=== PATIENT | male | born 1940 | race Caucasian/White ===

== ENCOUNTER 2023-08-08 08:11 | Day surgery (SDC) | payer OTHER ==
[2023-08-08 09:15] LABS: PH,URINE 5.5 (5.0-8.0); URINE APPEARANCE CLEAR; URINE BILIRUBIN NEGATIVE (NEGATIVE); URINE COLOR YELLOW; URINE GLUCOSE (UA) NEGATIVE (NEGATIVE); URINE KETONE NEGATIVE (NEGATIVE); URINE LEUK ESTERASE NEGATIVE (NEGATIVE); URINE NITRITE NEGATIVE (NEGATIVE); URINE PROTEIN TRACE (NEGATIVE); URINE UROBILINOGEN 0.2 mg/dL (0.2-1.0)
[2023-08-08 09:16] LABS: BASO % 0.9 % (0-2.0); EOS % 3.3 % (0-4.5); HEMATOCRIT 44.4 % (35.4-49); HEMOGLOBIN 14.5 GM/dL (11.7-16.9); MCHC 32.7 g/dl (32.0-35.9); MEAN CELL VOLUME 88.6 fl (80-96); MEAN PLT VOLUME 9.7 fl (7.5-11.1); MONO % 8.9 % (3.8-10.2); NEUT % 67.9 % (42.8-82.8); PLATELET COUNT 200 10^3/uL (134-434); RDW 14.3 % (11.9-15.9); WHITE BLOOD COUNT 6.5 K/mm3 (4.0-10.0)
[2023-08-08] MEDS: PORTA CATH FLUSH 10 ML IVPUSH PRN (09:40)
[2023-08-08] MEDS: SODIUM CHLORIDE 250 ML IV ONE (09:41)
[2023-08-08 09:44] LABS: POTASSIUM 4.2 mmol/L (3.5-5.1)
[2023-08-08 09:47] LABS: BLOOD UREA NITROGEN 18.6 mg/dL (7-18); CALCIUM 9.8 mg/dL (8.5-10.1)
[2023-08-08 09:48] LABS: ALBUMIN 3.3 g/dl (3.4-5.0)
[2023-08-08 09:50] LABS: BILIRUBIN,DIRECT 0.1 mg/dL (0.0-0.2); CREATININE 0.8 mg/dL (0.55-1.3)
[2023-08-08 09:52] LABS: BILIRUBIN,TOTAL 0.4 mg/dL (0.2-1)
[2023-08-08 09:53] LABS: N-TERMINAL BNP 466.5 pg/ml (5-450)
[2023-08-08] MEDS: FOSAPREPITANT DIMEGLUMINE 150 MG in SODIUM CHLORIDE 145 ML IVPB ONE (10:43)
[2023-08-08] MEDS: DEXAMETHASONE SOD PHOSPHATE 10 MG/1 ML VIAL IVPB ONE (11:21)
[2023-08-08] MEDS: PALONOSETRON HCL 0.25 MG/5 ML VIAL IVPUSH ONE (11:22)
[2023-08-08] MEDS: NIVOLUMAB 240 MG in SODIUM CHLORIDE 100 ML IVPB ONE (11:40)
[2023-08-08] MEDS: LEUCOVORIN CALCIUM IVPB ONE (12:19)
[2023-08-08] MEDS: WATER IVPB ONE (12:19)
[2023-08-08] MEDS: DEXTROSE 5% IVPB ONE (12:19)
[2023-08-08] MEDS: FLUOROURACIL CP ONE (14:42)
[2023-08-08] MEDS: SODIUM CHLORIDE CP ONE (14:42)
[2023-08-08] MEDS: FLUOROURACIL 500 MG/10 ML VIAL IVPUSH ONE (14:42)
[2023-08-08 16:08] VITALS: BP 137/78; PULSE 90; RESP 20; TEMP 97.8
[2023-08-08] MEDS ORDERED: PORTA CATH FLUSH 10 ML IVPUSH PRN (16:09)
== END 2023-08-08 15:25 | disposition home or self-care (01) ==
LOC: JONCCHEMO 08:11 → J7W 08:13 → JONCCHEMO 15:25
PROVIDERS: ATTEND Internal Medicine Hematology & Oncology
DX: Z51.11 Encounter for antineoplastic chemotherapy (principal); C15.9 Malignant neoplasm of esophagus, unspecified; C78.2 Secondary malignant neoplasm of pleura
CPT/HCPCS: 36415; 80048; 80076; 81003; 82150; 82533; 82550; 83690; 83880; 84439; 84443; 84484; 85025; 96367; 96375; 96413; 96415; 96417; G0498; J1100; J1453; J2469; J9190; J9263; J9299

== ENCOUNTER 2023-08-22 08:19 | Day surgery (SDC) | payer OTHER ==
[2023-08-22] MEDS: SODIUM CHLORIDE 250 ML IV ONE (09:35)
[2023-08-22 09:46] LABS: BASO % 0.5 % (0-2.0); EOS % 5.1 % (0-4.5); HEMATOCRIT 44.4 % (35.4-49); HEMOGLOBIN 14.7 GM/dL (11.7-16.9); LYMPH % 13.4 % (8-40); MCH 29.2 pg (25.7-33.7); MCHC 33.2 g/dl (32.0-35.9); MEAN CELL VOLUME 88.1 fl (80-96); MEAN PLT VOLUME 9.2 fl (7.5-11.1); PLATELET COUNT 189 10^3/uL (134-434); RBC 5.04 M/mm3 (4.00-5.60); WHITE BLOOD COUNT 6.1 K/mm3 (4.0-10.0)
[2023-08-22 09:55] LABS: EPI CELLS 15 /uL (0-25.1); HYALINE CASTS 1 /uL (0-3.1); URINE APPEARANCE CLEAR; URINE BACTERIA 12 /uL (0-1359); URINE BILIRUBIN NEGATIVE (NEGATIVE); URINE COLOR DK YELLOW; URINE GLUCOSE (UA) NEGATIVE (NEGATIVE); URINE KETONE NEGATIVE (NEGATIVE); URINE LEUK ESTERASE NEGATIVE (NEGATIVE); URINE NITRITE NEGATIVE (NEGATIVE); URINE PROTEIN 1+ (NEGATIVE); URINE RBC 30 /uL (0-23.9); URINE UROBILINOGEN 0.2 mg/dL (0.2-1.0); URINE WBC 11 /uL (0-25.8)
[2023-08-22 10:01] LABS: POTASSIUM 4.4 mmol/L (3.5-5.1)
[2023-08-22 10:05] LABS: ALBUMIN 3.4 g/dl (3.4-5.0); BLOOD UREA NITROGEN 15.9 mg/dL (7-18)
[2023-08-22 10:07] LABS: BILIRUBIN,DIRECT 0.1 mg/dL (0.0-0.2); CREATININE 0.9 mg/dL (0.55-1.3)
[2023-08-22 10:09] LABS: BILIRUBIN,TOTAL 0.4 mg/dL (0.2-1); N-TERMINAL BNP 424.3 pg/ml (5-450); TOT PROT 7.6 g/dl (6.4-8.2)
[2023-08-22] MEDS: FOSAPREPITANT DIMEGLUMINE 150 MG in SODIUM CHLORIDE 145 ML IVPB ONE (10:31)
[2023-08-22] MEDS: PALONOSETRON HCL 0.25 MG/5 ML VIAL IVPUSH ONE (11:20)
[2023-08-22] MEDS: DEXAMETHASONE SODIUM PHOSPHATE 10 MG in DEXTROSE 5%-WATER - 50 ML IVPB ONE (11:21)
[2023-08-22] MEDS: NIVOLUMAB 240 MG in SODIUM CHLORIDE 100 ML IVPB ONE (11:44)
[2023-08-22] MEDS: DEXTROSE 5% IVPB ONE (12:37)
[2023-08-22] MEDS: LEUCOVORIN CALCIUM IVPB ONE (12:37)
[2023-08-22] MEDS: WATER IVPB ONE (12:37)
[2023-08-22] MEDS: FLUOROURACIL 500 MG/10 ML VIAL IVPUSH ONE (14:59)
[2023-08-22] MEDS: SODIUM CHLORIDE CP ONE (15:00)
[2023-08-22] MEDS: FLUOROURACIL CP ONE (15:00)
[2023-08-22 15:57] VITALS: RESP 18; TEMP 97.5
[2023-08-22 16:11] VITALS: BP 103/52; PULSE 74
[2023-08-22] MEDS ORDERED: PORTA CATH FLUSH 10 ML IVPUSH PRN (16:11)
== END 2023-08-22 15:30 | disposition home or self-care (01) ==
LOC: JONCCHEMO 08:19 → J7W 08:21 → JONCCHEMO 15:30
PROVIDERS: ATTEND Internal Medicine Hematology & Oncology
DX: Z51.11 Encounter for antineoplastic chemotherapy (principal); C15.9 Malignant neoplasm of esophagus, unspecified; C78.2 Secondary malignant neoplasm of pleura
CPT/HCPCS: 36415; 80048; 80076; 81003; 82150; 82533; 82550; 83690; 83880; 84439; 84443; 84484; 85025; 96367; 96375; 96411; 96413; 96415; 96417; G0498; J1453; J2469; J9190; J9263; J9299

== ENCOUNTER 2023-09-05 08:28 | Day surgery (SDC) | payer OTHER ==
[2023-09-05 08:49] LABS: BASO % 0.8 % (0-2.0); EOS % 10.8 % (0-4.5); HEMATOCRIT 44.8 % (35.4-49); HEMOGLOBIN 14.5 GM/dL (11.7-16.9); LYMPH % 27.6 % (8-40); MCH 28.9 pg (25.7-33.7); MCHC 32.4 g/dl (32.0-35.9); MEAN CELL VOLUME 89.1 fl (80-96); MEAN PLT VOLUME 8.6 fl (7.5-11.1); MONO % 13.6 % (3.8-10.2); NEUT % 47.2 % (42.8-82.8); PLATELET COUNT 146 10^3/uL (134-434); RBC 5.03 M/mm3 (4.00-5.60); RDW 15.4 % (11.9-15.9); WHITE BLOOD COUNT 4.7 K/mm3 (4.0-10.0)
[2023-09-05 09:11] LABS: POTASSIUM 3.9 mmol/L (3.5-5.1)
[2023-09-05 09:13] LABS: ALBUMIN 3.5 g/dl (3.4-5.0); CALCIUM 9.6 mg/dL (8.5-10.1)
[2023-09-05 09:14] LABS: BLOOD UREA NITROGEN 14.2 mg/dL (7-18)
[2023-09-05 09:16] LABS: BILIRUBIN,DIRECT 0.2 mg/dL (0.0-0.2)
[2023-09-05 09:18] LABS: BILIRUBIN,TOTAL 0.6 mg/dL (0.2-1); TOT PROT 7.4 g/dl (6.4-8.2)
[2023-09-05 09:19] LABS: N-TERMINAL BNP 453.6 pg/ml (5-450)
[2023-09-05] MEDS: PORTA CATH FLUSH 10 ML IVPUSH PRN (09:30)
[2023-09-05] MEDS: SODIUM CHLORIDE 250 ML IV ONE (09:35)
[2023-09-05 09:36] LABS: EPI CELLS 6 /uL (0-25.1); HYALINE CASTS 2 /uL (0-3.1); URINE APPEARANCE CLEAR; URINE BACTERIA 7 /uL (0-1359); URINE BILIRUBIN NEGATIVE (NEGATIVE); URINE COLOR YELLOW; URINE GLUCOSE (UA) NEGATIVE (NEGATIVE); URINE KETONE TRACE (NEGATIVE); URINE LEUK ESTERASE NEGATIVE (NEGATIVE); URINE NITRITE NEGATIVE (NEGATIVE); URINE PROTEIN 1+ (NEGATIVE); URINE RBC 27 /uL (0-23.9); URINE UROBILINOGEN 0.2 mg/dL (0.2-1.0); URINE WBC 5 /uL (0-25.8)
[2023-09-05] MEDS: PALONOSETRON HCL 0.25 MG/5 ML VIAL IVPUSH ONE (10:16)
[2023-09-05] MEDS: DEXAMETHASONE SODIUM PHOSPHATE 10 MG in SODIUM CHLORIDE 50 ML IVPB ONE (10:16)
[2023-09-05] MEDS: FOSAPREPITANT DIMEGLUMINE 150 MG in SODIUM CHLORIDE 145 ML IVPB ONE (10:34)
[2023-09-05] MEDS: NIVOLUMAB 240 MG in SODIUM CHLORIDE 100 ML IVPB ONE (11:12)
[2023-09-05] MEDS: WATER IVPB ONE (11:44)
[2023-09-05] MEDS: LEUCOVORIN CALCIUM IVPB ONE (11:44)
[2023-09-05] MEDS: DEXTROSE 5% IVPB ONE (11:44)
[2023-09-05] MEDS: FLUOROURACIL 500 MG/10 ML VIAL IVPUSH ONE (14:23)
[2023-09-05] MEDS: FLUOROURACIL CP ONE (14:23)
[2023-09-05] MEDS: SODIUM CHLORIDE CP ONE (14:23)
[2023-09-05 15:51] VITALS: BP 103/70; PULSE 89; RESP 18; TEMP 97.4
== END 2023-09-05 15:00 | disposition home or self-care (01) ==
LOC: JONCCHEMO 08:28 → J7W 08:29 → JONCCHEMO 15:00
PROVIDERS: ATTEND Internal Medicine Hematology & Oncology
DX: Z51.11 Encounter for antineoplastic chemotherapy (principal); C15.9 Malignant neoplasm of esophagus, unspecified; C78.2 Secondary malignant neoplasm of pleura
CPT/HCPCS: 36415; 80048; 80076; 81003; 82150; 82533; 82550; 83690; 83880; 84439; 84443; 84484; 85025; 96367; 96375; 96411; 96413; 96415; 96417; G0498; J1453; J2469; J9190; J9263; J9299

== ENCOUNTER 2023-09-07 11:30 | Day surgery (SDC) | payer OTHER ==
[2023-09-07] MEDS: PORTA CATH FLUSH 10 ML IVPUSH PRN (12:30)
[2023-09-07 15:40] VITALS: BP 120/62; PULSE 98; RESP 20; TEMP 97.3
== END 2023-09-07 12:45 | disposition home or self-care (01) ==
LOC: JONCCHEMO 11:30 → J7W 11:30 → JONCCHEMO 12:45
PROVIDERS: ATTEND Internal Medicine Hematology & Oncology
DX: Z53.8 Procedure and treatment not carried out for other reasons (principal)

== ENCOUNTER 2023-09-19 08:29 | Day surgery (SDC) | payer OTHER ==
[2023-09-19 08:56] LABS: HEMATOCRIT 46.3 % (35.4-49); HEMOGLOBIN 15.1 GM/dL (11.7-16.9); MCH 29.1 pg (25.7-33.7); MCHC 32.6 g/dl (32.0-35.9); MEAN CELL VOLUME 89.4 fl (80-96); MEAN PLT VOLUME 9.2 fl (7.5-11.1); PLATELET COUNT 127 10^3/uL (134-434); RBC 5.18 M/mm3 (4.00-5.60); RDW 16.7 % (11.9-15.9); WHITE BLOOD COUNT 2.5 K/mm3 (4.0-10.0)
[2023-09-19] MEDS: SODIUM CHLORIDE 250 ML IV ONE (08:58)
[2023-09-19 09:04] LABS: EPI CELLS 10 /uL (0-25.1); HYALINE CASTS 4 /uL (0-3.1); PH,URINE 5.5 (5.0-8.0); URINE APPEARANCE CLEAR; URINE BACTERIA 9 /uL (0-1359); URINE BILIRUBIN NEGATIVE (NEGATIVE); URINE COLOR DK YELLOW; URINE GLUCOSE (UA) NEGATIVE (NEGATIVE); URINE KETONE TRACE (NEGATIVE); URINE LEUK ESTERASE NEGATIVE (NEGATIVE); URINE NITRITE NEGATIVE (NEGATIVE); URINE PROTEIN 1+ (NEGATIVE); URINE RBC 28 /uL (0-23.9); URINE UROBILINOGEN 0.2 mg/dL (0.2-1.0); URINE WBC 8 /uL (0-25.8)
[2023-09-19 09:20] LABS: CHLORIDE 103 mmol/L (98-107); POTASSIUM 3.6 mmol/L (3.5-5.1); SODIUM 138 mmol/L (136-145)
[2023-09-19 09:22] LABS: CALCIUM 9.4 mg/dL (8.5-10.1)
[2023-09-19 09:23] LABS: ALBUMIN 3.3 g/dl (3.4-5.0); ANION GAP 9 mmol/L (4-13); BLOOD UREA NITROGEN 11.5 mg/dL (7-18); CO2 26 mmol/L (21-32); GLUCOSE,RANDOM 128 mg/dL (74-106)
[2023-09-19 09:25] LABS: BILIRUBIN,DIRECT 0.2 mg/dL (0.0-0.2)
[2023-09-19 09:26] LABS: SGOT/AST 29 U/L (15-37); SGPT/ALT 47 U/L (13-61)
[2023-09-19 09:27] LABS: BILIRUBIN,TOTAL 0.6 mg/dL (0.2-1)
[2023-09-19 09:29] LABS: ALK PHOS 78 U/L (45-117)
[2023-09-19 09:30] LABS: ANISOCYTOSIS 0; MACROCYTOSIS 0
[2023-09-19] MEDS ORDERED: PALONOSETRON HCL 0.25 MG/5 ML VIAL IVPUSH ONE (09:30)
[2023-09-19] MEDS ORDERED: FOSAPREPITANT DIMEGLUMINE 150 MG in SODIUM CHLORIDE 145 ML IVPB ONE (09:30)
[2023-09-19] MEDS ORDERED: DEXAMETHASONE SODIUM PHOSPHATE 10 MG in SODIUM CHLORIDE 50 ML IVPB ONE (09:30)
[2023-09-19 09:31] VITALS: RESP 20
[2023-09-19 09:42] LABS: N-TERMINAL BNP 448.5 pg/ml (5-450)
[2023-09-19] MEDS ORDERED: NIVOLUMAB 240 MG in SODIUM CHLORIDE 100 ML IVPB ONE (10:00)
[2023-09-19] MEDS ORDERED: LEUCOVORIN IVPB ONE (10:30)
[2023-09-19] MEDS ORDERED: WATER IVPB ONE (10:30)
[2023-09-19] MEDS ORDERED: DEXTROSE 5% IVPB ONE (10:30)
[2023-09-19 10:54] VITALS: BP 121/74; PULSE 77; TEMP 97.8
[2023-09-19] MEDS: PORTA CATH FLUSH 10 ML IVPUSH PRN (11:00)
[2023-09-19] MEDS ORDERED: FLUOROURACIL 500 MG/10 ML VIAL IVPUSH ONE (12:30)
[2023-09-19] MEDS ORDERED: SODIUM CHLORIDE CP ONE (12:45)
[2023-09-19] MEDS ORDERED: FLUOROURACIL CP ONE (12:45)
== END 2023-09-19 11:00 | disposition home or self-care (01) ==
LOC: JONCCHEMO 08:29 → J7W 08:31 → JONCCHEMO 11:00
PROVIDERS: ATTEND Internal Medicine Hematology & Oncology
DX: Z53.8 Procedure and treatment not carried out for other reasons (principal)
CPT/HCPCS: 36415; 80048; 80076; 81003; 82150; 82533; 82550; 83690; 83880; 84439; 84443; 84484; 85025

== ENCOUNTER 2023-10-03 09:09 | Day surgery (SDC) | payer OTHER ==
[2023-10-03] MEDS: SODIUM CHLORIDE 250 ML IV ONE (09:42)
[2023-10-03 10:33] LABS: BASO % 0.4 % (0-2.0); HEMATOCRIT 45.8 % (35.4-49); LYMPH % 11.2 % (8-40); MCH 29.6 pg (25.7-33.7); MCHC 32.8 g/dl (32.0-35.9); MEAN CELL VOLUME 90.4 fl (80-96); MONO % 13.2 % (3.8-10.2); NEUT % 74.2 % (42.8-82.8); PLATELET COUNT 253 10^3/uL (134-434); RBC 5.06 M/mm3 (4.00-5.60); RDW 19.7 % (11.9-15.9); WHITE BLOOD COUNT 6.4 K/mm3 (4.0-10.0)
[2023-10-03 10:38] LABS: EPI CELLS 25 /uL (0-25.1); HYALINE CASTS 3 /uL (0-3.1); PH,URINE 5.5 (5.0-8.0); URINE APPEARANCE CLOUDY; URINE BACTERIA 111 /uL (0-1359); URINE BILIRUBIN NEGATIVE (NEGATIVE); URINE COLOR DK YELLOW; URINE GLUCOSE (UA) NEGATIVE (NEGATIVE); URINE KETONE 2+ (NEGATIVE); URINE LEUK ESTERASE NEGATIVE (NEGATIVE); URINE NITRITE NEGATIVE (NEGATIVE); URINE PROTEIN 1+ (NEGATIVE); URINE RBC 3 /uL (0-23.9)
[2023-10-03 10:39] LABS: URINE WBC 122 /uL (0-25.8)
[2023-10-03 10:53] LABS: POTASSIUM 3.6 mmol/L (3.5-5.1)
[2023-10-03 10:56] LABS: BLOOD UREA NITROGEN 12.9 mg/dL (7-18); CALCIUM 9.3 mg/dL (8.5-10.1)
[2023-10-03 10:59] LABS: BILIRUBIN,DIRECT 0.2 mg/dL (0.0-0.2); CREATININE 0.8 mg/dL (0.55-1.3)
[2023-10-03 11:01] LABS: BILIRUBIN,TOTAL 0.6 mg/dL (0.2-1); TOT PROT 6.8 g/dl (6.4-8.2)
[2023-10-03 11:02] LABS: N-TERMINAL BNP 663.6 pg/ml (5-450)
[2023-10-03 11:10] LABS: URINE CRYSTALS CA OXALATE FEW /hpf
[2023-10-03] MEDS: FOSAPREPITANT DIMEGLUMINE 150 MG in SODIUM CHLORIDE 145 ML IVPB ONE (11:55)
[2023-10-03] MEDS: PALONOSETRON HCL 0.25 MG/5 ML VIAL IVPUSH ONE (12:28)
[2023-10-03] MEDS: DEXAMETHASONE SODIUM PHOSPHATE 10 MG in SODIUM CHLORIDE 50 ML IVPB ONE (12:32)
[2023-10-03] MEDS: NIVOLUMAB 240 MG in SODIUM CHLORIDE 100 ML IVPB ONE (12:51)
[2023-10-03] MEDS: LEUCOVORIN IVPB ONE (13:34)
[2023-10-03] MEDS: DEXTROSE 5% IVPB ONE (13:34)
[2023-10-03] MEDS: WATER IVPB ONE (13:34)
[2023-10-03 14:07] VITALS: RESP 20; TEMP 97.6
[2023-10-03] MEDS: FLUOROURACIL CP ONE (15:58)
[2023-10-03] MEDS: SODIUM CHLORIDE CP ONE (15:58)
[2023-10-03] MEDS: FLUOROURACIL 500 MG/10 ML VIAL IVPUSH ONE (15:58)
[2023-10-03] MEDS: PORTA CATH FLUSH 10 ML IVPUSH PRN (15:59)
[2023-10-03 17:01] VITALS: BP 115/69; PULSE 67
== END 2023-10-03 16:00 ==
LOC: J7W 09:09 → JONCCHEMO 09:09
PROVIDERS: ATTEND Internal Medicine Hematology & Oncology
PROC: 3E04305 Introduction of Other Antineoplastic into Central Vein, Percutaneous Approach (ICD-10-PCS; principal; 2023-10-03)
PROC: 3E043GC Introduction of Other Therapeutic Substance into Central Vein, Percutaneous Approach (ICD-10-PCS; 2023-10-03)
DX: Z51.11 Encounter for antineoplastic chemotherapy (principal); C15.9 Malignant neoplasm of esophagus, unspecified; C78.2 Secondary malignant neoplasm of pleura
CPT/HCPCS: 36415; 80048; 80076; 81003; 82150; 82533; 82550; 83690; 83880; 84439; 84443; 84484; 85025; 96367; 96368; 96375; 96411; 96413; 96415; 96417; G0498; J1453; J2469; J9190; J9263; J9299

== ENCOUNTER 2023-10-05 14:11 | Day surgery (SDC) | payer OTHER ==
[2023-10-05] MEDS: PORTA CATH FLUSH 10 ML IVPUSH PRN (14:25)
[2023-10-05] MEDS: PEGFILGRASTIM (NEULASTA ONPRO) 6 MG/0.6 ML KIT SQ ONE (14:27)
[2023-10-05 14:43] VITALS: BP 107/69; PULSE 77; RESP 20; TEMP 97.8
== END 2023-10-05 14:45 ==
LOC: JONCCHEMO 14:11 → J7W 14:15 → JONCCHEMO 14:45
PROVIDERS: ATTEND Internal Medicine Hematology & Oncology
PROC: 3E013GC Introduction of Other Therapeutic Substance into Subcutaneous Tissue, Percutaneous Approach (ICD-10-PCS; principal; 2023-10-05)
DX: C15.9 Malignant neoplasm of esophagus, unspecified (principal); C78.2 Secondary malignant neoplasm of pleura; Z76.89 Persons encountering health services in other specified circumstances
CPT/HCPCS: J2506

== ENCOUNTER 2023-10-11 19:01 | Inpatient (IN) | payer OTHER ==
[2023-10-11] MEDS ORDERED: ONDANSETRON 4 MG/2 ML VIAL ONE (20:33)
[2023-10-11] MEDS: ONDANSETRON 4 MG/2 ML VIAL IVPUSH ONE (20:46)
[2023-10-11] MEDS: SODIUM CHLORIDE 0.9% 500 ML INFUS.BAG IV ONE (20:46)
[2023-10-11 20:56] LABS: HEMATOCRIT 40.9 % (35.4-49); HEMOGLOBIN 13.7 GM/dL (11.7-16.9); MCH 29.9 pg (25.7-33.7); MCHC 33.4 g/dl (32.0-35.9); MEAN CELL VOLUME 89.5 fl (80-96); MEAN PLT VOLUME 9.7 fl (7.5-11.1); PLATELET COUNT 129 10^3/uL (134-434); RBC 4.57 M/mm3 (4.00-5.60); RDW 18.9 % (11.9-15.9); WHITE BLOOD COUNT 3.5 K/mm3 (4.0-10.0)
[2023-10-11 21:21] LABS: POTASSIUM 3.5 mmol/L (3.5-5.1)
[2023-10-11 21:24] LABS: ALBUMIN 2.8 g/dl (3.4-5.0); BLOOD UREA NITROGEN 8.3 mg/dL (7-18)
[2023-10-11 21:27] LABS: CREATININE 0.8 mg/dL (0.55-1.3)
[2023-10-11 21:28] LABS: BILIRUBIN,TOTAL 0.7 mg/dL (0.2-1); TOT PROT 6.3 g/dl (6.4-8.2)
[2023-10-11 21:29] LABS: OVALOCYTE 1+; TEAR DROP CELLS 1+
[2023-10-11 21:45] LABS: PLATELET ESTIMATE SLT DECREASE
[2023-10-11 22:19] LABS: N-TERMINAL BNP 1477.9 pg/ml (5-450)
[2023-10-11] MEDS ORDERED: PIPERACILLIN/TAZOB 4.5 GM 4.5 GM/100 ML BAG IVPB ONE (23:52)
[2023-10-11] MEDS: PIPERACILLIN/TAZOB 4.5 GM 4.5 GM in DEXTROSE 5%-WATER 100 ML IVPB ONE (23:58)
[2023-10-12] MEDS ORDERED: VANCOMYCIN 1 GRAM (PRE-DOCKED) 1,000 MG/250 ML BAG IVPB ONE (00:57)
[2023-10-12] MEDS: VANCOMYCIN 1,000 MG in DEXTROSE 5%-WATER - 250 ML IVPB ONE (01:10)
[2023-10-12 01:42] LABS: EPI CELLS 19 /uL (0-25.1); HYALINE CASTS 1 /uL (0-3.1); URINE APPEARANCE CLEAR; URINE BACTERIA 7 /uL (0-1359); URINE BILIRUBIN NEGATIVE (NEGATIVE); URINE COLOR YELLOW; URINE GLUCOSE (UA) NEGATIVE (NEGATIVE); URINE KETONE 2+ (NEGATIVE); URINE LEUK ESTERASE NEGATIVE (NEGATIVE); URINE NITRITE NEGATIVE (NEGATIVE); URINE PROTEIN 1+ (NEGATIVE); URINE RBC 23 /uL (0-23.9); URINE WBC 15 /uL (0-25.8)
[2023-10-12] MEDS ORDERED: ALBUTEROL SO4 0.083% IH SOL 2.5 MG/3 ML VIAL.NEB. NEB PRN (06:57)
[2023-10-12] MEDS ORDERED: ACETAMINOPHEN 500 MG TABLET (FP) PO PRN (07:00)
[2023-10-12] MEDS ORDERED: ONDANSETRON 8 MG TABLET (FP) PO PRN (07:01)
[2023-10-12] MEDS ORDERED: ONDANSETRON 4 MG TABLET PO PRN (07:05)
[2023-10-12] MEDS: DEXTROSE 5%-NORMAL SALINE 1,000 ML IV SCH (07:10)
[2023-10-12 07:35] LABS: HEMATOCRIT 37.9 % (35.4-49); HEMOGLOBIN 12.8 GM/dL (11.7-16.9); MCHC 33.7 g/dl (32.0-35.9); MEAN CELL VOLUME 89.1 fl (80-96); MEAN PLT VOLUME 9.2 fl (7.5-11.1); PLATELET COUNT 109 10^3/uL (134-434); RBC 4.25 M/mm3 (4.00-5.60); RDW 19.5 % (11.9-15.9); WHITE BLOOD COUNT 4.3 K/mm3 (4.0-10.0)
[2023-10-12 07:49] LABS: POTASSIUM 3.7 mmol/L (3.5-5.1)
[2023-10-12 07:50] LABS: CALCIUM 8.8 mg/dL (8.5-10.1)
[2023-10-12 07:51] LABS: BLOOD UREA NITROGEN 6.3 mg/dL (7-18)
[2023-10-12 07:54] LABS: CREATININE 0.7 mg/dL (0.55-1.3)
[2023-10-12 08:54] LABS: ANISOCYTOSIS 1+; MACROCYTOSIS 1+
[2023-10-12] MEDS ORDERED: PANTOPRAZOLE 40 MG TABLET PO ONE (09:07)
[2023-10-12] MEDS ORDERED: SUCRALFATE 1 GM TABLET (FP) ONE (09:07)
[2023-10-12] MEDS ORDERED: TAMSULOSIN HCL 0.4 MG CAP ONE (09:07)
[2023-10-12] MEDS ORDERED: MULTIVITAMINS (DAILY MVI) TABLET (FP) ONE (09:07)
[2023-10-12] MEDS: PANTOPRAZOLE 40 MG TABLET PO SCH (09:24)
[2023-10-12] MEDS: TAMSULOSIN HCL 0.4 MG CAP PO SCH (09:24)
[2023-10-12] MEDS: SUCRALFATE 1 GM TABLET (FP) PO SCH (09:24)
[2023-10-12] MEDS: MULTIVITAMINS (DAILY MVI) TABLET (FP) PO SCH (09:24)
[2023-10-12] MEDS: CYANOCOBALAMIN 1,000 MCG TABLET (FP) PO SCH (10:08)
[2023-10-12] MEDS: FINASTERIDE 5 MG TABLET (FP) PO SCH (10:08)
[2023-10-13 08:59] LABS: HEMATOCRIT 37.6 % (35.4-49); HEMOGLOBIN 12.5 GM/dL (11.7-16.9); MCH 30.1 pg (25.7-33.7); MCHC 33.3 g/dl (32.0-35.9); MEAN CELL VOLUME 90.4 fl (80-96); MEAN PLT VOLUME 9.2 fl (7.5-11.1); PLATELET COUNT 113 10^3/uL (134-434); RBC 4.16 M/mm3 (4.00-5.60); RDW 19.4 % (11.9-15.9)
[2023-10-13 09:01] LABS: POTASSIUM 3.8 mmol/L (3.5-5.1)
[2023-10-13 09:08] LABS: ALBUMIN 2.4 g/dl (3.4-5.0)
[2023-10-13 09:09] LABS: BLOOD UREA NITROGEN 4.4 mg/dL (7-18); CREATININE 0.8 mg/dL (0.55-1.3)
[2023-10-13 09:10] LABS: BILIRUBIN,TOTAL 0.4 mg/dL (0.2-1)
[2023-10-13 09:11] LABS: TOT PROT 5.4 g/dl (6.4-8.2)
[2023-10-13 09:16] LABS: N-TERMINAL BNP 1655.3 pg/ml (5-450)
[2023-10-13] MEDS: FUROSEMIDE 20 MG TABLET (FP) PO SCH ×2 (09:40→17:38)
[2023-10-13 11:30] LABS: ANISOCYTOSIS 1+; MACROCYTOSIS 0
[2023-10-14 13:18] VITALS: BMI 24.9
[2023-10-15 09:14] LABS: HEMATOCRIT 40.2 % (35.4-49); HEMOGLOBIN 13.7 GM/dL (11.7-16.9); MCH 30.2 pg (25.7-33.7); MEAN CELL VOLUME 88.8 fl (80-96); MEAN PLT VOLUME 8.8 fl (7.5-11.1); PLATELET COUNT 118 10^3/uL (134-434); RBC 4.53 M/mm3 (4.00-5.60); RDW 19.9 % (11.9-15.9); WHITE BLOOD COUNT 12.7 K/mm3 (4.0-10.0)
[2023-10-15 09:43] LABS: CHLORIDE 97 mmol/L (98-107); SODIUM 141 mmol/L (136-145)
[2023-10-15 09:56] LABS: CALCIUM 9.5 mg/dL (8.5-10.1)
[2023-10-15 09:57] LABS: CO2 38 mmol/L (21-32)
[2023-10-15 09:59] LABS: ALBUMIN 2.7 g/dl (3.4-5.0); CREATININE 0.7 mg/dL (0.55-1.3)
[2023-10-15 10:00] LABS: ANISOCYTOSIS 2+; GLUCOSE,RANDOM 100 mg/dL (74-106); MACROCYTOSIS 0; SGOT/AST 23 U/L (15-37); SGPT/ALT 19 U/L (13-61)
[2023-10-15 10:01] LABS: BILIRUBIN,TOTAL 0.3 mg/dL (0.2-1); TOT PROT 5.9 g/dl (6.4-8.2)
[2023-10-15 10:03] LABS: ALK PHOS 92 U/L (45-117)
[2023-10-15 10:31] LABS: ANION GAP 7 mmol/L (4-13); BLOOD UREA NITROGEN 2.3 mg/dL (7-18); POTASSIUM 2.9 mmol/L (3.5-5.1)
[2023-10-15] MEDS: KCL 10 MEQ IVPB 10 MEQ/100 ML INFUS.BAG IVPB SCH (13:13)
[2023-10-15] MEDS: POTASSIUM CHLORIDE ORAL LIQUID 20 MEQ/15 ML PO ONE (13:13)
[2023-10-16] MEDS: SUCRALFATE 1 GM TABLET (FP) PO SCH (06:21)
[2023-10-16 09:16] LABS: POTASSIUM 3.1 mmol/L (3.5-5.1)
[2023-10-16 09:18] LABS: CALCIUM 9.5 mg/dL (8.5-10.1)
[2023-10-16 09:20] LABS: BLOOD UREA NITROGEN 5.8 mg/dL (7-18)
[2023-10-16 09:22] LABS: CREATININE 0.8 mg/dL (0.55-1.3)
[2023-10-16 09:24] LABS: BILIRUBIN,TOTAL 0.5 mg/dL (0.2-1); TOT PROT 6.6 g/dl (6.4-8.2)
[2023-10-16] MEDS: KCL 10 MEQ IVPB 10 MEQ/100 ML INFUS.BAG IVPB SCH (10:31)
[2023-10-16] MEDS: POTASSIUM CHLORIDE ORAL LIQUID 20 MEQ/15 ML PO ONE (10:31)
[2023-10-16 13:38] LABS: MAGNESIUM 1.4 mg/dL (1.8-2.4)
[2023-10-16 13:42] LABS: PHOSPHOROUS 3.4 mg/dL (2.5-4.9)
[2023-10-16] MEDS: MAGNESIUM SULF 50% (8.12 MEQ/2 ML-1 GM VIAL) IVPB ONE (15:31)
[2023-10-17 08:13] LABS: HEMATOCRIT 39.9 % (35.4-49); HEMOGLOBIN 13.2 GM/dL (11.7-16.9); MCH 29.4 pg (25.7-33.7); MCHC 33.1 g/dl (32.0-35.9); MEAN CELL VOLUME 88.6 fl (80-96); MEAN PLT VOLUME 9.2 fl (7.5-11.1); PLATELET COUNT 154 10^3/uL (134-434); POTASSIUM 4.1 mmol/L (3.5-5.1); RDW 19.4 % (11.9-15.9)
[2023-10-17 08:20] LABS: CALCIUM 9.4 mg/dL (8.5-10.1); TOT PROT 5.8 g/dl (6.4-8.2)
[2023-10-17 08:21] LABS: ALBUMIN 2.6 g/dl (3.4-5.0); BLOOD UREA NITROGEN 9.5 mg/dL (7-18); CREATININE 0.8 mg/dL (0.55-1.3)
[2023-10-17 08:25] LABS: BILIRUBIN,TOTAL 0.5 mg/dL (0.2-1)
[2023-10-17 09:58] LABS: ANISOCYTOSIS 1+; MACROCYTOSIS 1+
[2023-10-17 15:56] VITALS: BP 90/71; PULSE 81; RESP 15; TEMP 97.8
== END 2023-10-17 19:52 | disposition home or self-care (01) | DRG 809 ==
LOC: JER 19:01 → JERBED 10-12 01:51 → OBSVTOIN 10-12 15:02 → J8W 10-12 19:10
PROVIDERS: ADMIT Internal Medicine; ATTEND Internal Medicine
DX: D61.810 Antineoplastic chemotherapy induced pancytopenia (principal); C15.9 Malignant neoplasm of esophagus, unspecified; C34.90 Malignant neoplasm of unspecified part of unspecified bronchus or lung; J98.11 Atelectasis; K21.9 Gastro-esophageal reflux disease without esophagitis; D61.818 Other pancytopenia; N40.0 Benign prostatic hyperplasia without lower urinary tract symptoms; R53.1 Weakness; R11.2 Nausea with vomiting, unspecified; R91.8 Other nonspecific abnormal finding of lung field; E87.70 Fluid overload, unspecified; R94.31 Abnormal electrocardiogram [ECG] [EKG]; E87.6 Hypokalemia; E83.42 Hypomagnesemia
CPT/HCPCS: 0241U-QW; 36415; 71045-TC-FY; 71260-TC; 80048; 80053; 80061; 81003; 83036; 83735; 83880; 84100; 84439; 84443; 84484; 85025; 87040; 87086; 87635; 93005; 93010; 93306-TC; 97116-GP; 97162-GP; 99285-25; G0378; Q9967

== ENCOUNTER 2023-10-30 09:05 | Day surgery (SDC) | payer OTHER ==
[~2023-10-30 09:05] MED LIST: DEXAMETHASONE SODIUM PHOSPHATE 10 MG in SODIUM CHLORIDE 50 ML IVPB ONE; DEXTROSE 5% IVPB ONE; FLUOROURACIL 500 MG/10 ML VIAL IVPUSH ONE; FLUOROURACIL CP ONE; FOSAPREPITANT DIMEGLUMINE 150 MG in SODIUM CHLORIDE 145 ML IVPB ONE; LEUCOVORIN IVPB ONE; NIVOLUMAB 240 MG in SODIUM CHLORIDE 100 ML IVPB ONE; PALONOSETRON HCL 0.25 MG/5 ML VIAL IVPUSH ONE; SODIUM CHLORIDE 250 ML IV ONE; SODIUM CHLORIDE CP ONE; WATER IVPB ONE
[2023-10-30] MEDS: SODIUM CHLORIDE 250 ML IV ONE (09:54)
[2023-10-30 10:02] LABS: BASO % 0.9 % (0-2.0); EOS % 1.8 % (0-4.5); HEMATOCRIT 41.7 % (35.4-49); HEMOGLOBIN 14.1 GM/dL (11.7-16.9); LYMPH % 7.6 % (8-40); MCH 30.6 pg (25.7-33.7); MCHC 33.9 g/dl (32.0-35.9); MEAN CELL VOLUME 90.4 fl (80-96); MEAN PLT VOLUME 9.3 fl (7.5-11.1); MONO % 8.6 % (3.8-10.2); NEUT % 81.1 % (42.8-82.8); PLATELET COUNT 370 10^3/uL (134-434); RBC 4.62 M/mm3 (4.00-5.60); WHITE BLOOD COUNT 8.9 K/mm3 (4.0-10.0)
[2023-10-30 10:21] LABS: EPI CELLS 17 /uL (0-25.1); HYALINE CASTS 7 /uL (0-3.1); PH,URINE 7.5 (5.0-8.0); URINE APPEARANCE TURBID; URINE BACTERIA 459 /uL (0-1359); URINE BILIRUBIN 1+ (NEGATIVE); URINE COLOR DK YELLOW; URINE GLUCOSE (UA) NEGATIVE (NEGATIVE); URINE KETONE TRACE (NEGATIVE); URINE LEUK ESTERASE 3+ (NEGATIVE); URINE NITRITE NEGATIVE (NEGATIVE); URINE PROTEIN 3+ (NEGATIVE); URINE WBC 15326 /uL (0-25.8)
[2023-10-30 10:25] LABS: POTASSIUM 4.7 mmol/L (3.5-5.1)
[2023-10-30 10:28] LABS: CALCIUM 9.9 mg/dL (8.5-10.1)
[2023-10-30 10:29] LABS: ALBUMIN 2.8 g/dl (3.4-5.0); BLOOD UREA NITROGEN 11.9 mg/dL (7-18)
[2023-10-30 10:32] LABS: BILIRUBIN,DIRECT 0.2 mg/dL (0.0-0.2)
[2023-10-30 10:33] LABS: BILIRUBIN,TOTAL 0.5 mg/dL (0.2-1)
[2023-10-30 10:45] LABS: URINE RBC 931.6 /uL (0-23.9); YEAST NEGATIVE (NEGATIVE)
[2023-10-30] MEDS: FOSAPREPITANT DIMEGLUMINE 150 MG in SODIUM CHLORIDE 145 ML IVPB ONE (11:07)
[2023-10-30] MEDS: DEXAMETHASONE SODIUM PHOSPHATE 10 MG in SODIUM CHLORIDE 50 ML IVPB ONE (12:05)
[2023-10-30] MEDS: PALONOSETRON HCL 0.25 MG/5 ML VIAL IVPUSH ONE (12:19)
[2023-10-30] MEDS: NIVOLUMAB 240 MG in SODIUM CHLORIDE 100 ML IVPB ONE (12:45)
[2023-10-30] MEDS: WATER IVPB ONE (13:25)
[2023-10-30] MEDS: LEUCOVORIN IVPB ONE (13:25)
[2023-10-30] MEDS: DEXTROSE 5% IVPB ONE (13:25)
[2023-10-30 15:03] VITALS: RESP 20; TEMP 97.6
[2023-10-30] MEDS: FLUOROURACIL 500 MG/10 ML VIAL IVPUSH ONE (15:56)
[2023-10-30] MEDS: SODIUM CHLORIDE CP ONE (15:58)
[2023-10-30] MEDS: FLUOROURACIL CP ONE (15:58)
[2023-10-30] MEDS: PORTA CATH FLUSH 10 ML IVPUSH PRN (16:04)
[2023-10-30 17:22] VITALS: BP 114/82; PULSE 86
== END 2023-10-30 16:15 | disposition home or self-care (01) ==
LOC: JONCCHEMO 09:05 → J7W 09:05 → JONCCHEMO 09:21
PROVIDERS: ATTEND Internal Medicine Hematology & Oncology
DX: Z51.11 Encounter for antineoplastic chemotherapy (principal); C15.9 Malignant neoplasm of esophagus, unspecified; C78.2 Secondary malignant neoplasm of pleura
CPT/HCPCS: 36415; 80048; 80076; 81003; 82150; 82533; 82550; 83690; 83880; 84439; 84443; 84484; 85025; 96367; 96375; 96411; 96413; 96415; 96417; G0498; J1453; J2469; J9190; J9263; J9299

== ENCOUNTER 2024-01-08 08:50 | Day surgery (SDC) | payer OTHER ==
[2024-01-08 09:33] LABS: BASO % 0.9 % (0-2.0); EOS % 9.9 % (0-4.5); HEMOGLOBIN 15.1 GM/dL (11.7-16.9); LYMPH % 10.6 % (8-40); MCH 30.5 pg (25.7-33.7); MCHC 33.6 g/dl (32.0-35.9); MEAN CELL VOLUME 90.6 fl (80-96); MEAN PLT VOLUME 9.5 fl (7.5-11.1); MONO % 7.1 % (3.8-10.2); NEUT % 71.5 % (42.8-82.8); PLATELET COUNT 320 10^3/uL (134-434); RBC 4.97 M/mm3 (4.00-5.60); RDW 15.4 % (11.9-15.9); WHITE BLOOD COUNT 7.7 K/mm3 (4.0-10.0)
[2024-01-08 09:54] LABS: CHLORIDE 98 mmol/L (98-107); POTASSIUM 4.8 mmol/L (3.5-5.1); SODIUM 138 mmol/L (136-145)
[2024-01-08 09:57] LABS: ANION GAP 9 mmol/L (4-13); BLOOD UREA NITROGEN 10.6 mg/dL (7-18); CALCIUM 10.5 mg/dL (8.5-10.1); CO2 31 mmol/L (21-32); GLUCOSE,RANDOM 110 mg/dL (74-106)
[2024-01-08 09:58] LABS: AMYLASE 70 U/L (25-115)
[2024-01-08 09:59] LABS: BILIRUBIN,DIRECT 0.2 mg/dL (0.0-0.2); CREATININE 0.8 mg/dL (0.55-1.3); SGOT/AST 24 U/L (15-37); SGPT/ALT 9 U/L (13-61)
[2024-01-08 10:01] LABS: ALK PHOS 87 U/L (45-117); BILIRUBIN,TOTAL 0.6 mg/dL (0.2-1); TOT PROT 7.9 g/dl (6.4-8.2)
[2024-01-08] MEDS: SODIUM CHLORIDE 250 ML IV ONE (10:31)
[2024-01-08] MEDS: FOSAPREPITANT DIMEGLUMINE 150 MG in SODIUM CHLORIDE 145 ML IVPB ONE (11:07)
[2024-01-08] MEDS: PALONOSETRON HCL 0.25 MG/5 ML VIAL IVPUSH ONE (11:50)
[2024-01-08] MEDS: NIVOLUMAB 240 MG in SODIUM CHLORIDE 100 ML IVPB ONE (11:53)
[2024-01-08] MEDS: PORTA CATH FLUSH 10 ML IVPUSH PRN (12:40)
[2024-01-08 16:53] VITALS: BP 103/76; PULSE 88; RESP 20; TEMP 97.6
== END 2024-01-08 12:45 | disposition home or self-care (01) ==
LOC: JONCCHEMO 08:50 → J7W 08:50 → JONCCHEMO 12:45
PROVIDERS: ATTEND Internal Medicine Hematology & Oncology
DX: Z51.11 Encounter for antineoplastic chemotherapy (principal); C15.9 Malignant neoplasm of esophagus, unspecified
CPT/HCPCS: 36415; 80048; 80076; 82150; 82550; 83690; 84439; 84443; 85025; 96367; 96375; 96413; J1453; J2469; J9299